=== PATIENT | female | born 1965 | race Caucasian/White ===

== ENCOUNTER 2018-08-22 18:19 | Outpatient (REF) | payer OTHER, SELFPAY ==
[2018-08-22 22:08] LABS: Abs Immature Grans 0.02 k/cumm (0.0-0.09); Absolute Basophil Count 0.03 k/cumm (0.0-0.2); Absolute Eosinophil Count 0.08 k/cumm (0.0-0.7); Absolute Lymphocyte Count 3.35 k/cumm (1.2-3.4); Absolute Monocyte Count 0.45 k/cumm (0.11-0.7); Absolute Neutrophil Count 4.01 k/cumm (1.2-6.7); Basophils % 0.4; HCT 42.3 % (36.0-46.0); HGB 13.9 g/dL (12.0-15.5); Immature Grans % 0.3; Lymphocytes % 42.2; Mean Corp. HGB Concentration 32.9 g/dL (32.0-36.0); Mean Corpuscular Hemoglobin 29.1 pg (27.0-33.0); Mean Corpuscular Volume 88.5 fL (80-95); Mean Platelet Volume 11.2 fL (8.0-11.0); Monocytes % 5.7; Neutrophils % 50.4; Platelet Count 248 x1000/uL (130-400); RBC 4.78 m/cumm (4.00-5.20); RBC Distribution Width 13.6 % (11.7-14.6); White Blood Cell Count 7.94 k/cumm (4.4-10.8)
[2018-08-22 22:15] LABS: Iron 53 ug/dL (50-175); Total Iron Binding Capacity 308 ug/dL (250-450); Transferrin Sat 17 % (15-50)
[2018-08-22 22:52] LABS: Anion Gap 8.5 mmol/L (3-11); BUN 17 mg/dL (7-18); CO2 29.5 mmol/L (21.0-32.0); CREATININE 0.88 mg/dL (0.55-1.02); Calcium 9.7 mg/dL (8.5-10.1); Chloride 102 mmol/L (98-107); Ferritin 107 ng/mL (8-388); Glucose 90 mg/dL (70-100); Potassium 4.3 mmol/L (3.5-5.1); Sodium 140 mmol/L (136-145)
[2018-08-22 23:09] LABS: FREE T4 1.04 ng/dL (0.76-1.46)
== END 2018-08-22 18:39 ==
LOC: NCHCN 18:19
PROVIDERS: Visit Provider Nurse Practitioner Family
DX: R06.83 Snoring (principal); R07.9 Chest pain, unspecified; N95.1 Menopausal and female climacteric states; L71.9 Rosacea, unspecified; Z00.00 Encounter for general adult medical examination without abnormal findings; G47.62 Sleep related leg cramps; G47.00 Insomnia, unspecified
CPT/HCPCS: 80048; 82728; 83540; 83550; 83735; 84439; 84443; 85025

== ENCOUNTER 2018-09-01 01:01 | Outpatient (CLI) | payer OTHER, SELFPAY ==
--- NOTE | 2018-09-01 16:07 | DI.MAMMO_ITS ---
SYMPTOM/DIAGNOSIS: SCREENING, Z12.31 BILATERAL SCREENING MAMMOGRAM: Mammograms were interpreted according to the usual protocol including computer analysis with CAD system, tomosynthesis and C view imaging. Comparison is made with exams from 2009 through 2017. The breasts are composed of heterogeneously dense fibroglandular tissue, breast density category C. No suspicious masses or suspicious microcalcifications are seen. There has been no significant change. IMPRESSION: Category 1-C, negative mammogram. Yearly screening mammography is recommended. [facility] ASSESSMENT OF FINDINGS: Negative. Category 1. Patient will receive a letter notifying them of these results. Bi-RADS category C. The breasts are heterogeneously dense, which may obscure small masses.
== END 2018-09-01 01:21 ==
PROVIDERS: PCP Family Medicine; Visit Provider Nurse Practitioner Family
DX: Z12.31 Encounter for screening mammogram for malignant neoplasm of breast (principal)
CPT/HCPCS: 77063; 77067

== ENCOUNTER 2018-10-11 08:43 | Outpatient (REF) | payer OTHER, SELFPAY ==
[2018-10-11 15:00] LABS: TSH (W/Ref FT4) 3.67 uIU/mL (0.358-3.74)
== END 2018-10-11 09:03 ==
LOC: NCHCN 08:43
PROVIDERS: PCP Family Medicine; Visit Provider Nurse Practitioner Family
DX: E03.9 Hypothyroidism, unspecified (principal)
CPT/HCPCS: 84443

== ENCOUNTER 2020-06-25 10:28 | Outpatient (REF) | payer OTHER, SELFPAY ==
[2020-06-25 21:39] LABS: ALT 23 U/L (14-59); AST 19 U/L (15-37); Albumin 3.7 g/dL (3.4-5.0); Alkaline Phosphatase 82 U/L (46-116); Anion Gap 5.1 mmol/L (3-11); BUN 14 mg/dL (7-18); Bilirubin, Total 0.4 mg/dL (0.2-1.0); CO2 31.9 mmol/L (21.0-32.0); CREATININE 0.79 mg/dL (0.55-1.02); Calcium 9.1 mg/dL (8.5-10.1); Calculated LDL 118 mg/dL (<100); Chloride 103 mmol/L (98-107); Cholesterol 187 mg/dL (<200); Glucose 86 mg/dL (74-106); HDL Cholesterol 60 mg/dL (40-60); Potassium 4.8 mmol/L (3.5-5.1); Sodium 140 mmol/L (136-145); TSH (W/Ref FT4) 2.57 uIU/mL (0.36-3.74); Total Protein 7.2 g/dL (6.4-8.2); Triglyceride 47 mg/dL (<150)
== END 2020-06-25 10:48 ==
LOC: NCHCN 10:28
PROVIDERS: PCP Family Medicine
DX: Z00.00 Encounter for general adult medical examination without abnormal findings (principal); E03.9 Hypothyroidism, unspecified
CPT/HCPCS: 80053; 80061; 84443

== ENCOUNTER 2020-07-11 02:14 | Outpatient (CLI) | payer OTHER, SELFPAY ==
--- NOTE | 2020-07-11 | DI.MAMMO_ITS ---
EXAM: MAMMO SCREENING CLINICAL HISTORY: SCREENING,Z12.31 TECHNIQUE: Mammograms were interpreted according to the usual protocol including computer analysis w [employer] CAD system, tomosynthesis and C-view imaging. COMPARISON: 2013 through 2017 FINDINGS: The breasts are composed of heterogeneously dense fibroglandular densities, Breast Density category C . No suspicious masses or suspicious microcalcifications are seen. No skin thickening or abnormal axillary lymph nodes are seen. There has been no significant change from prior exams. IMPRESSION: BI-RADS Category 1, Negative mammogram. Yearly screening mammography is recommended. Breast Density Category C, heterogeneously Dense. The mammogram demonstrates the patient's breast tissue is dense. Dense breast tissue is very common a nd is not abnormal but dense breast tissue can make it harder to find cancer on a mammogram. Also, de nse breast tissue may increase breast cancer risk. This information about the result of the mammogram report was provided to the patient to raise their awareness. Use this report when you speak with the patient about their risks for breast cancer, which includes their family history. At that time, you may recommend additional screening tests (Ultrasound or MRI) as they might be useful based on their r isk. A negative radiographic report should not delay biopsy if a dominant or clinically suspicious mass is present. Up to ten percent of cancers are not identified on mammography. A negative report may reinforce clinical impression. Adenosis and dense breasts may obscure an underlying neoplasm. False positive reports average 6 to 10%.
== END 2020-07-11 02:34 ==
DX: Z12.31 Encounter for screening mammogram for malignant neoplasm of breast (principal)
CPT/HCPCS: 77063; 77067

== ENCOUNTER 2020-07-29 09:31 | Outpatient (REF) | payer MEDICAID, SELFPAY ==
[2020-08-01 12:52] LABS: SARS-CoV-2 RNA Source Nasal/Nares
[2020-08-01 12:53] LABS: SARS-CoV-2 RNA Not Detected (NotDetected)
== END 2020-07-29 09:51 ==
LOC: NCHCN 09:31
PROVIDERS: Visit Provider Nurse Practitioner Family
DX: R50.9 Fever, unspecified (principal); Z11.59 Encounter for screening for other viral diseases
CPT/HCPCS: U0003

== ENCOUNTER 2020-08-29 11:11 | Outpatient (REF) | payer SELFPAY ==
[2020-09-01 16:49] LABS: COVID-19 RT-PCR Result NEGATIVE (Negative)
== END 2020-08-29 11:31 ==
LOC: NCHCN 11:11
PROVIDERS: Visit Provider Nurse Practitioner Family
DX: Z20.828 Contact with and (suspected) exposure to other viral communicable diseases (principal)
CPT/HCPCS: U0003

== ENCOUNTER 2020-09-02 03:28 | Outpatient (CLI) | payer MEDICAID, SELFPAY ==
[2020-09-04 17:07] LABS: COVID-19 RT-PCR Result NEGATIVE (Negative)
== END 2020-09-02 03:48 ==
PROVIDERS: Visit Provider Surgery
DX: Z11.59 Encounter for screening for other viral diseases (principal); Z01.818 Encounter for other preprocedural examination
CPT/HCPCS: U0003

== ENCOUNTER 2020-09-05 10:22 | Day surgery (SDC) | payer MEDICAID, SELFPAY ==
[2020-09-05 10:41] VITALS: BP 135/51; PULSE 68; RESP 16; TEMP 36.5; O2SAT 99
[2020-09-05] MEDS: Lactated Ringers 1,000 ML 80 ML IV (11:03)
--- NOTE | 2020-09-05 11:44 | W.PM.DSUDISC ---
Discharge Plan Disposition Patient Disposition: HOME Condition: Good Discharge Details Reason For Visit: colon scope Attending Provider: Elza Moran Primary Care Provider: Gabby Barahona Home Meds and New Rx's Prescriptions: No Action calcium carbonate [Tums] 300 mg (750 mg) tablet,chewable 300 mg PO BID RF: 0 vitamin E (dl, acetate) 400 unit capsule 400 unit PO DAILY RF: 0 doxycycline hyclate 50 MG capsule 50 mg PO BID RF: 0 spironolactone 50 MG tablet 50 mg PO DAILY RF: 0 levothyroxine 25 mcg tablet 25 mcg PO DAILY RF: 0 cholecalciferol (vitamin D3) 100 mcg (4,000 unit) capsule 100 mcg PO DAILY RF: 0 ascorbic acid (vitamin C) 500 mg capsule 500 mg PO DAILY RF: 0 multivitamin Tablet 1 tab PO DAILY RF: 0 Discharge Instructions Additional Instructions: Findings:normal today Follow up:repeat scope in 5 yrs time Please call if you develop: fevers >101.5 Nausea or Vomiting Abdominal pain that is not transient DAY SURGERY UNIT POST COLONOSCOPY INSTRUCTIONS 1. Because there will be medication in your system for the next 24 hours, you may feel a little sleepy. Your coordination will be affected. Therefore: a. Do not drive or operate dangerous equipment for 24 hours. b. Do not drink alcohol beverages for 24 hours (not even beer). c. Plan to go home and rest for the day. 2. Generally there are no restrictions on your activity after a day or so has gone by, but you may feel a bit fatigued for a few days. 3 After you arrive home you may have a light meal and return to a normal diet as you can tolerate it without feeling sick to your stomach. 4. After surgery, you may feel pain or discomfort. This should be only transient, but if it persists please contact your doctor. 5. If there are any questions regarding the findings of your procedure, please feel free to contact your doctor. 6. If you are unable to contact your doctor with a problem, contact the hospital at [phone]. 7. Continue all your regular medications unless directed otherwise. I understand the above instructions and have no questions. Signature of Patient or Responsible Adult Escort Date/Time Name of Responsible Adult Escort Signature of Nurse Date/Time Activity:: no lifting over 20#'s or strenuous activity x24 Activity:: small light meals x 24 hr Discharge Orders Discharge Orders: Discharge Order (Routine); Ordered 09/05/20 Ordered By: Elza Moran DS: Diagnosis Discharge Diagnosis (1) Adenomatous polyps: Status: Acute
--- NOTE | 2020-09-05 11:47 | W.COLOREPORT ---
Date of service: 09/05/20 Time of Service: 11:47 Colonoscopy Report Date of procedure: 09/05/20 Pre-op diagnosis general: a. polyps Post-op diagnosis procedure note: other (nl today ) Surgeon: Elza Moran Anesthesia proc note operative: GETA Pathology: none sent Complications: None Disposition: same day Prep: Miralax/Dulcolax Retraction Time: 10 mins Procedure Description: After informed consent was obtained the patient was taken to the procedure room and placed in a left decubitous position. Monitors were applied and a time out was done. The patients name, date of , procedure, allergies to medications and metal in their body was reviewed. The patient was then sedated. Once sedated and comfortable a rectal exam was done. External exam was normal. Internal exam revealed a normal sphincter tone and no palpable masses. The scope was then introduced and retrofelexed. NO internal hemorrhoids were identified. The scope was then advanced to the cecum w/out difficulty. The TI and appendiceal orifice were identified. The prep was good. The scope was then slowly retracted over 10 minutes back into the rectum. There are no polyps, AVMs, or diverticula today. The mucosa is pink and healthy. The scope was removed and the patient was woken up and taken back to Same day surgery in stable condition. The patient tolerated the procedure well and there were no immediate complications. Follow up: The patient should follow up in 5 years unless they develop changes in bowel habits or other new gastrointestinal complaints.
[2020-09-05 12:37] VITALS: BP 112/54; PULSE 56; RESP 16; TEMP 36.6; O2SAT 100
== END 2020-09-05 12:50 | disposition home or self-care (01) ==
PROVIDERS: Visit Provider Surgery
PROC: 0DJD8ZZ Inspection of Lower Intestinal Tract, Via Natural or Artificial Opening Endoscopic (ICD-10-PCS; CPT 45378; principal; 2020-09-05 11:00)
DX: Z12.11 Encounter for screening for malignant neoplasm of colon (principal); Z86.010 Personal history of colon polyps; E03.9 Hypothyroidism, unspecified
CPT/HCPCS: 45378

== ENCOUNTER 2020-09-23 21:53 | Outpatient (REF) | payer MEDICAID, SELFPAY ==
[2020-09-25 19:27] LABS: COVID-19 RT-PCR UVMMC Result Negative (Negative)
== END 2020-09-23 22:13 ==
LOC: NCHCN 21:53
PROVIDERS: Visit Provider Nurse Practitioner Family
DX: Z20.822 Contact with and (suspected) exposure to COVID-19 (principal)
CPT/HCPCS: U0003

== ENCOUNTER 2021-01-22 16:57 | Outpatient (REF) | payer MEDICAID, SELFPAY ==
--- NOTE | 2021-01-22 13:30 | SKI_PTH ---
PATIENT: Michelle Sabillon LOC: NCN #:[id number] AGE/SX: 55/F ROOM: RE01/22/[address]: Елена Kaye : 1965 BED: DIS: 01/22/2021 SPEC #: [id number] RECD: 01/23/21 12:07 STATUS: ISMAEL RESaloni #: [id number] TERESA: 01/22/21 13:[address]: Елена Kaye DEPT: Surgical Specimen RECD BY: Lila Bullock ENTERED: 01/23/21 12:08 SP TYPE: SKI OTHR DR: Gabby Barahona Tissues: 1 - SKIN BIOPSY(SHAVE/PUNCH) Procedures: SKIN LEVEL 4 Comments: [id number]
== END 2021-01-22 16:58 | disposition home or self-care (01) ==
LOC: NCHCN 16:57
PROVIDERS: Visit Provider Nurse Practitioner Family
DX: L43.8 Other lichen planus (principal)
CPT/HCPCS: 88305

== ENCOUNTER 2021-07-16 18:47 | Outpatient (REF) | payer MEDICAID, SELFPAY ==
[2021-07-16 22:00] LABS: Anion Gap 8.8 mmol/L (3-11); BUN 16 mg/dL (7-18); CO2 30.2 mmol/L (21.0-32.0); CREATININE 0.7 mg/dL (0.55-1.02); Calcium 9.5 mg/dL (8.5-10.1); Chloride 104 mmol/L (98-107); Glucose 83 mg/dL (74-106); Potassium 4.3 mmol/L (3.5-5.1); Sodium 143 mmol/L (136-145); TSH (W/Ref FT4) 1.28 uIU/mL (0.36-3.74)
== END 2021-07-16 18:48 | disposition home or self-care (01) ==
LOC: NCHCN 18:47
PROVIDERS: Visit Provider Nurse Practitioner Family
DX: E03.9 Hypothyroidism, unspecified (principal); Z51.81 Encounter for therapeutic drug level monitoring
CPT/HCPCS: 80048; 84443

== ENCOUNTER 2021-08-08 13:28 | Outpatient (REF) | payer MEDICAID, SELFPAY ==
[2021-08-09 01:08] LABS: COVID-19 RT-PCR UVMMC Result Negative (Negative)
== END 2021-08-08 13:29 | disposition home or self-care (01) ==
LOC: NCHCN 13:28
PROVIDERS: Visit Provider Nurse Practitioner Family
DX: Z20.822 Contact with and (suspected) exposure to COVID-19 (principal)
CPT/HCPCS: U0003

== ENCOUNTER 2021-08-12 13:23 | Outpatient (REF) | payer MEDICAID, SELFPAY ==
[2021-08-13 21:49] LABS: COVID-19 RT-PCR UVMMC Result Negative (Negative)
== END 2021-08-12 13:24 | disposition home or self-care (01) ==
LOC: NCHCN 13:23
PROVIDERS: Visit Provider Nurse Practitioner Family
DX: Z20.822 Contact with and (suspected) exposure to COVID-19 (principal)
CPT/HCPCS: U0003

== ENCOUNTER → 2022-07-20 02:13 | Outpatient (CLI) | payer MEDICAID, SELFPAY ==
--- NOTE | 2022-07-20 07:30 | DI.MAMMO_ITS ---
Exam(s) MAMMO SCREENING EXAM: MAMMO SCREENING CLINICAL HISTORY: SCREENING, Z12.31 TECHNIQUE: Mammograms were interpreted according to the usual protocol including computer analysis w [employer] CAD system, tomosynthesis and C-view imaging. COMPARISON: 2013 through 2019 FINDINGS: The breasts are composed of heterogeneously dense fibroglandular densities, Breast Density category C . No suspicious masses or suspicious microcalcifications are seen. No skin thickening or abnormal axillary lymph nodes are seen. There has been no significant change from prior exams. IMPRESSION: BI-RADS Category 1, Negative mammogram. Yearly screening mammography is recommended. Breast Density Category C, heterogeneously Dense. The mammogram demonstrates the patient's breast tissue is dense. Dense breast tissue is very common a nd is not abnormal but dense breast tissue can make it harder to find cancer on a mammogram. Also, de nse breast tissue may increase breast cancer risk. This information about the result of the mammogram report was provided to the patient to raise their awareness. Use this report when you speak with the patient about their risks for breast cancer, which includes their family history. At that time, you may recommend additional screening tests (Ultrasound or MRI) as they might be useful based on their r isk. A negative radiographic report should not delay biopsy if a dominant or clinically suspicious mass is present. Up to ten percent of cancers are not identified on mammography. A negative report may reinforce clinical impression. Adenosis and dense breasts may obscure an underlying neoplasm. False positive reports average 6 to 10%.
== END ==
PROVIDERS: Visit Provider Nurse Practitioner Family
DX: Z12.31 Encounter for screening mammogram for malignant neoplasm of breast (principal)
CPT/HCPCS: 77063; 77067

== ENCOUNTER 2022-10-20 08:39 | Outpatient (REF) | payer MEDICAID, SELFPAY ==
[2022-10-20 14:34] LABS: HCT 43.4 % (36.0-46.0); HGB 14.2 g/dL (11.2-15.7); MCH 28.5 pg (27.0-33.0); MCHC 32.7 % (32.0-36.0); MCV 87 fL (80-95); Platelet Count 328 10^3/uL (130-400); RBC 4.98 10^6/uL (3.93-5.22); RDW 12.5 % (11.7-14.6); WBC 7.31 10^3/uL (4.4-10.8)
[2022-10-20 14:58] LABS: ALT 21 U/L (14-59); AST 24 U/L (15-37); Alkaline Phosphatase 90 U/L (46-116); Anion Gap 7.3 mmol/L (3-11); BUN 13 mg/dL (7-18); Bilirubin, Total 0.5 mg/dL (0.2-1.0); CO2 30.7 mmol/L (21.0-32.0); Calcium 9.8 mg/dL (8.5-10.1); Chloride 106 mmol/L (98-107); Glucose 93 mg/dL (74-106); Potassium 5.6 mmol/L (3.5-5.1); Sodium 144 mmol/L (136-145); TSH 2.39 uIU/mL (0.36-3.74); Total Protein 7.7 g/dL (6.4-8.2)
[2022-10-20 15:23] LABS: Calculated LDL 147 mg/dL (<100); Cholesterol 215 mg/dL (<200); HDL Cholesterol 55 mg/dL (40-60); Triglyceride 68 mg/dL (<150)
== END 2022-10-20 08:40 | disposition home or self-care (01) ==
LOC: NCHCN 08:39
PROVIDERS: PCP Nurse Practitioner Family; Visit Provider Nurse Practitioner Family
DX: E03.9 Hypothyroidism, unspecified (principal); Z00.00 Encounter for general adult medical examination without abnormal findings
CPT/HCPCS: 80053; 80061; 85027; 84443

== ENCOUNTER 2023-10-21 09:51 | Outpatient (REF) | payer BC, SELFPAY ==
[2023-10-21 14:58] LABS: HCT 41.8 % (36.0-46.0); HGB 13.3 g/dL (11.2-15.7); MCH 27.9 pg (27.0-33.0); MCHC 31.8 % (32.0-36.0); MCV 88 fL (80-95); Platelet Count 269 10^3/uL (130-400); RBC 4.76 10^6/uL (3.93-5.22); RDW 13.3 % (11.7-14.6); RDW-SD 43.3 fL; WBC 7.11 10^3/uL (4.4-10.8)
[2023-10-21 15:23] LABS: Hemoglobin A1C 5.5 % (<5.7)
[2023-10-21 15:32] LABS: ALT 25 U/L (14-59); AST 24 U/L (15-37); Albumin 3.8 g/dL (3.4-5.0); Alkaline Phosphatase 85 U/L (46-116); BUN 22 mg/dL (7-18); Bilirubin, Total 0.5 mg/dL (0.2-1.0); CREATININE 0.8 mg/dL (0.55-1.02); Calcium 9.8 mg/dL (8.5-10.1); Calculated LDL 158 mg/dL (<100); Chloride 105 mmol/L (98-107); Cholesterol 237 mg/dL (<200); Glucose 88 mg/dL (74-106); HDL Cholesterol 69 mg/dL (40-60); Potassium 4.8 mmol/L (3.5-5.1); Sodium 143 mmol/L (136-145); TSH 2.38 uIU/mL (0.36-3.74); Total Protein 7.7 g/dL (6.4-8.2); Triglyceride 52 mg/dL (<150)
== END 2023-10-21 09:52 | disposition home or self-care (01) ==
LOC: NCHCN 09:51
PROVIDERS: PCP Nurse Practitioner Family; Visit Provider Nurse Practitioner Family
DX: Z00.00 Encounter for general adult medical examination without abnormal findings (principal); E03.9 Hypothyroidism, unspecified; Z13.220 Encounter for screening for lipoid disorders; Z13.1 Encounter for screening for diabetes mellitus
CPT/HCPCS: 80053; 80061; 85027; 83036; 84443

== ENCOUNTER 2024-10-24 10:48 | Outpatient (REF) | payer OTHER, SELFPAY ==
[2024-10-24 14:37] LABS: HCT 43.3 % (36.0-46.0); HGB 13.8 g/dL (11.2-15.7); MCH 28.3 pg (27.0-33.0); MCHC 31.9 % (32.0-36.0); MCV 89 fL (80-95); MPV 10.8 fL (8.0-11.0); Platelet Count 256 10^3/uL (130-400); RBC 4.88 10^6/uL (3.93-5.22); RDW 13.4 % (11.7-14.6); RDW-SD 43.8 fL; WBC 6.86 10^3/uL (4.4-10.8)
[2024-10-24 15:03] LABS: ALT 36 U/L (14-59); AST 49 U/L (15-37); Albumin 3.8 g/dL (3.4-5.0); Alkaline Phosphatase 95 U/L (46-116); Anion Gap 4.6 mmol/L (3-11); BUN 15 mg/dL (7-18); Bilirubin, Total 0.46 mg/dL (0.2-1.0); CO2 31.4 mmol/L (21.0-32.0); CREATININE 0.8 mg/dL (0.55-1.02); Calcium 9.6 mg/dL (8.5-10.1); Chloride 105 mmol/L (98-107); Estimated GFR 83.78 (mL/min/1.73m2); Glucose 89 mg/dL (74-106); Potassium 5.4 mmol/L (3.5-5.1); Sodium 141 mmol/L (136-145); TSH (W/Ref FT4) 2.51 uIU/mL (0.36-3.74); Total Protein 7.4 g/dL (6.4-8.2)
== END 2024-10-24 10:49 | disposition home or self-care (01) ==
LOC: NCHCN 10:48
PROVIDERS: PCP Nurse Practitioner Family; Visit Provider Nurse Practitioner Family
DX: Z00.00 Encounter for general adult medical examination without abnormal findings (principal); E03.9 Hypothyroidism, unspecified
CPT/HCPCS: 80053; 85027; 84443

== ENCOUNTER 2024-11-14 11:47 | Outpatient (REF) | payer OTHER, SELFPAY ==
[2024-11-14 15:14] LABS: TSH (W/Ref FT4) 2.29 uIU/mL (0.36-3.74)
== END 2024-11-14 11:48 | disposition home or self-care (01) ==
LOC: NCHCN 11:47
PROVIDERS: PCP Nurse Practitioner Family; Visit Provider Nurse Practitioner Family
DX: E03.9 Hypothyroidism, unspecified (principal)
CPT/HCPCS: 84443

== ENCOUNTER 2024-11-29 03:53 | Outpatient (CLI) | payer OTHER, SELFPAY ==
--- NOTE | 2024-11-29 | DI.MAMMO_ITS ---
Exam(s) MAMMO SCREENING EXAM: MAMMO SCREENING CLINICAL HISTORY: Screening, Z12.31 TECHNIQUE: Bilateral full field digital CC and MLO mammographic images were obtained with 3D tomosyn thesis and utilizing computer aided detection (CAD). COMPARISON: Available for comparison. FINDINGS: Masses/Architectural Distortion: None seen. Microcalcifications: No suspicious pleomorphic-type are seen. Skin Thickening/Nipple Retraction: None. IMPRESSION: 1. No significant interval change with no specific features of malignancy noted. 2. Unless there is more urgent need, screening mammography is recommended, as per [place] [employer] guidelines. BI-RADS Category 1 - Negative Breast Density - Category C - Heterogeneously dense Breast density category C or D implies that the patient has dense breast tissue. Dense breast tissue is very common and is not abnormal but dense breast tissue can make it harder to find cancer on a ma mmogram. Also, dense breast tissue may increase their breast cancer risk. This information about the result of the mammogram report was provided to the patient to raise their awareness. Use this report when you speak with the patient about their risks for breast cancer, which includes their family hist ory. At that time, you may recommend for more screening tests (Ultrasound or MRI) as they might be us eful based on their risk. A negative radiographic report should not delay biopsy if a dominant or clinically suspicious mass is present. Up to ten percent of cancers are not identified on mammography. A negative report may reinforce clinical impression. Adenosis and dense breasts may obscure an underlying neoplasm. False positive reports average 6 to 10%. Patient will receive a letter notifying them of these results.
== END 2024-11-29 04:13 ==
PROVIDERS: PCP Nurse Practitioner Family; Visit Provider Nurse Practitioner Family
DX: Z12.31 Encounter for screening mammogram for malignant neoplasm of breast (principal); R92.333 Mammographic heterogeneous density, bilateral breasts
CPT/HCPCS: 77063; 77067

== ENCOUNTER 2025-01-15 09:06 | Day surgery (SDC) | payer OTHER, SELFPAY ==
--- NOTE | 2025-01-14 12:21 | W.PM.DSUDISC ---
Date of service: 01/15/25 Discharge Plan Disposition Patient Disposition: Home Condition: Good Discharge Details Reason For Visit: screening colonoscopy Attending Provider: Jin Stack Primary Care Provider: Елена Kaye Home Meds and New Rx's Prescriptions: Continued doxycycline hyclate 50 mg tablet 50 mg PO BID multivitamin Tablet 1 tab PO DAILY acetylcysteine [NAC] 600 mg capsule 600 mg PO BID cyclosporine [Restasis] 0.05 % dropperette 1 drp ophthalmic (eye) QID levothyroxine 25 mcg tablet 25 mcg PO DAILY Discontinued bisacodyl [Dulcolax (bisacodyl)] 5 mg tablet,delayed release (DR/EC) 5 mg PO ONCE Qty: 4 0RF Rx Instructions: Take per colonoscopy instructions provided by ordering providers office polyethylene glycol 3350 17 gram/dose powder 17 g PO ONCE Qty: 238 0RF Rx Instructions: Take per colonoscopy instructions provided by ordering providers office Discharge Instructions Additional Instructions: Michelle, was great meeting you today, and I hope you are comfortable throughout the colonoscopy. Things went very smoothly. Your prep was excellent, we could see everything fine. I did not see any evidence of tumors or polyps anywhere along the length of your colon. With 2 negative screening colonoscopies, it is very reasonable to extend the screening interval to 10 years at this point. If you have any questions at all, please do not hesitate to ask at any time. 1. If tolerated, consume a soft, low fiber diet for 1-2 days. 2. Do not drive, drink alcohol, operate machinery, make critical decisions, or do activities that require coordination or balance for 24 hours. 3. Because air was put into your colon during the procedure, expelling air from your rectum (passing gas or farting) is normal. 4. You may not have a bowel movement for 1-3 days because of the colonoscopy prep. This is normal. 5. Go directly to the emergency room if you notice any of the following: Develop chills (warm to touch), or if you have a thermometer and your temperature is above 101 Difficulty breathing or difficultly swallowing Persistent vomiting Severe abdominal pain, other than gas cramps Severe chest pain Black, tarry stools Any bleeding ? exceeding one tablespoon 6. Call your physician if the site where your intravenous was started becomes red, swollen, painful, and warm to touch. 7. Your physician has reviewed your pre-procedure medications. Please continue to take those medications as previously ordered. You will be given specific information/education regarding any changes to your medications before leaving. Activity:: Activity as Tolerated Diet:: As Tolerated Discharge Orders Discharge Orders: Discharge Order (Routine); Ordered 01/14/25 Ordered By: Jin Stack DS: Diagnosis Discharge Diagnosis (1) Adenomatous polyps: Status: Acute Asessment and Plan: Negative screening colonoscopy today
--- NOTE | 2025-01-14 12:23 | COLE_ITS ---
Date of service: 01/15/25 Time of Service: 10:55 Colonoscopy Report Date of procedure: 01/15/25 Pre-op diagnosis general: screening colonoscopy Post-op diagnosis procedure note: other (Negative screening colonoscopy) Procedure: colonoscopy Surgeon: Jin Stack Anesthesia Type: General:No Airway Estimated blood loss (mL): 0 Pathology: none sent Complications: None Disposition: same day Indications: Michelle is a 59 year old woman with a history of adenomatous polyps who needs a screening colonoscopy Prep: Miralax/Dulcolax Procedure Start Time: 10:33 Procedure End Time: 10:49 Retraction Time: 7 Findings: Negative screening colonoscopy Procedure Description: After the induction of monitored anesthetic care, and with the patient in left lateral decubitus position, I began by performing an external anorectal exam.? Perineum and skin were normal, as was the anal verge.? Next, I performed a digital rectal exam.? I did not appreciate any abnormal findings.? Next, I advanced a colonoscope into the rectal vault.? I performed retroflexion.? This appeared normal.? Using insufflation, I then advanced the colonoscope beyond the rectal folds and into the sigmoid colon before advancing towards the cecum.? The quality of the prep was excellent.? The scope was noted to be in the cecum by identification of the ileocecal valve and appendiceal orifice.? I then began withdrawing the colonoscope using repeated irrigation as necessary for full evaluation of the colonic mucosa. ?Once the scope was withdrawn to the level of the rectum, great care was taken to examine portions of the rectal folds.? Finally, the scope was withdrawn and the patient was brought to the same-day surgery recovery unit as the anesthetic wore off. I saw no signs of tumors, polyps, or any other worrisome pathology. ?The findings and instructions were shared with the patient prior to discharge. [place] Bowel Prep [place] Bowel Prep Right Colon: 3 Left Colon: 3 Transverse Colon: 3 Total Score: 9
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
[2025-01-15 09:27] VITALS: BP 132/65; PULSE 54; RESP 17; TEMP 36.6; O2SAT 100
[2025-01-15] MEDS: Lactated Ringers 1,000 ML 80 ML IV (09:39)
[2025-01-15 10:00] VITALS: BMI 30.4
[2025-01-15 10:52] VITALS: BP 116/59; PULSE 57; RESP 16; TEMP 36.4; O2SAT 97
[2025-01-15 11:15] VITALS: BP 130/57; PULSE 50; RESP 16; TEMP 36.5; O2SAT 99
--- NOTE | 2025-01-15 11:41 | W.ANESPOSTOP ---
Postoperative Evaluation Date, Time and Location Date Performed: 01/15/25 Time Performed: 11:41 Patient Location: Day Surgery Unit Vital Signs Most Recent Imported Vital Signs: Most Recent Vital Signs Temp Pulse Resp BP Pulse Ox 36.5 C 50 L 16 130/57 L 99 01/15/25 11:15 01/15/25 11:15 01/15/25 11:15 01/15/25 11:15 01/15/25 11:15 Pain Score Most Recent Pain Score: Most Recent Pain Score Pain Level 0 01/15/25 11:15 Assessment Mental Status: Awake (Alert & Oriented to Patient Baseline) Airway and Respiratory Function: Patent airway with normal (patient baseline) respiratory exam Cardiovascular Function: Hemodynamically Stable Hydration Status: Adequately Hydrated Nausea & Vomiting: No Nausea or Vomiting Pain: Pt. Denies Any Pain Peripheral Nerve Block: Patient did not receive a nerve block
== END 2025-01-15 11:39 | disposition home or self-care (01) ==
LOC: SUR 09:06
PROVIDERS: PCP Nurse Practitioner Family; Visit Provider Surgery
PROC: 0DJD8ZZ Inspection of Lower Intestinal Tract, Via Natural or Artificial Opening Endoscopic (ICD-10-PCS; CPT 45378; principal; 2025-01-15 10:15)
DX: Z86.0100 Personal history of colon polyps, unspecified; Z12.11 Encounter for screening for malignant neoplasm of colon
CPT/HCPCS: 45378; J2704